=== PATIENT | female | born 1980 | race Caucasian/White ===

== ENCOUNTER 2025-04-28 12:44 | Emergency (ER) | payer OTHER, SELFPAY ==
[2025-04-28 12:46] VITALS: BP 155/96
[2025-04-28 13:06] LABS: Urine Character Clear (Clear)
[2025-04-28 13:32] LABS: Urine Squamous Cell >30 /LPF (Few); Urine Urothelial Cell 0-2 /LPF (FEW)
[2025-04-28 13:33] LABS: Urine Red Blood Cell 0-2 /HPF (0-2)
--- NOTE | 2025-04-28 14:15 | ED.GENMED ---
History of Present Illness
<Bren Castillo MD - Last Filed: 04/28/25 15:22>
General
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
Time Seen by Provider: 04/28/25 14:07
History of Present Illness
History of Present Illness:
Patient is a 45-year-old woman with history of prior ovarian cysts presenting to the emergency department abdominal pain. Patient states that a few weeks ago she developed lower pelvic pain. It is intermittent. Is a cramping sensation. She also
states that she lifted something heavy and felt that she pulled a muscle. No nausea vomiting. No fevers chills. No vaginal discharge. No vaginal bleeding. She is not sexually active. She finished her period yesterday
Phy Exam
<Bren Castillo MD - Last Filed: 04/28/25 15:22>
Physical Exam
Physical Exam:
GENERAL: in no acute distress
HEENT: normocephalic, extraocular movements intact, moist oral mucosa
NECK: normal inspection
RESPIRATORY: no respiratory distress, clear to auscultation bilaterally
CARDIOVASCULAR: regular rate and rhythm
ABDOMEN/: soft, non-distended, tenderness palpation to the lower pelvic area, no rebound or guarding
EXTREMITIES: non-tender, no edema/swelling
NEUROLOGIC: awake and alert, moves all extremities
SKIN: warm
Course
<Bren Castillo MD - Last Filed: 04/28/25 15:22>
Orders/Labs/Results
Orders:
Orders
04/28/25 12:53
HCG, Urine Qualitative Screen Urgent
Date Specimen was Collected: 04/28/25
Time Specimen was Collected: 12:48
Comment: ADD ON
Urinalysis Reflex To Culture Urgent
Date Specimen was Collected: 04/28/25
Time Specimen was Collected: 12:48
Urine Microscopic Reflex Cult Urgent
04/28/25 14:08
US Pelvis W Transvag Combined Urgent
Comment:
Reason For Exam: ab pain
04/28/25 18:19
Add On- LAB Urgent
Tests Added?: urine hcg qual
Abnormal Lab Results
04/28/25
12:53
Ur Occult Blood Reflex 1+ A
(Negative)
Urine Bacteria (Reflex) Few A
(Negative)
Urine Albumin (Reflex) 1+ A
(Neg - Trace)
Vital Signs
Initial and Last Documented VS:
Initial Vital Signs
Temp Pulse Resp BP Pulse Ox
37.1 C 87 16 155/96 98
04/28/25 12:46 04/28/25 12:46 04/28/25 12:46 04/28/25 12:46 04/28/25 12:46
Last Documented Vital Signs
Temp Pulse Resp BP Pulse Ox
37.1 C 80 18 142/70 99
04/28/25 12:46 04/28/25 18:04 04/28/25 18:04 04/28/25 18:04 04/28/25 18:04
<Frank Vines MD - Last Filed: 04/28/25 21:18>
Orders/Labs/Results
Orders:
Orders
04/28/25 12:53
HCG, Urine Qualitative Screen Urgent
Date Specimen was Collected: 04/28/25
Time Specimen was Collected: 12:48
Comment: ADD ON
Urinalysis Reflex To Culture Urgent
Date Specimen was Collected: 04/28/25
Time Specimen was Collected: 12:48
Urine Microscopic Reflex Cult Urgent
04/28/25 14:08
US Pelvis W Transvag Combined Urgent
Comment:
Reason For Exam: ab pain
04/28/25 18:19
Add On- LAB Urgent
Tests Added?: urine hcg qual
Abnormal Lab Results
04/28/25
12:53
Ur Occult Blood Reflex 1+ A
(Negative)
Urine Bacteria (Reflex) Few A
(Negative)
Urine Albumin (Reflex) 1+ A
(Neg - Trace)
Vital Signs
Initial and Last Documented VS:
Initial Vital Signs
Temp Pulse Resp BP Pulse Ox
37.1 C 87 16 155/96 98
04/28/25 12:46 04/28/25 12:46 04/28/25 12:46 04/28/25 12:46 04/28/25 12:46
Last Documented Vital Signs
Temp Pulse Resp BP Pulse Ox
37.1 C 80 18 142/70 99
04/28/25 12:46 04/28/25 18:04 04/28/25 18:04 04/28/25 18:04 04/28/25 18:04
<Bren Castillo MD - Last Filed: 04/28/25 15:22>
MDM/Problems Addressed
Differential Diagnosis Includes:
45-year-old woman with history of ovarian cyst presenting to the emergency department with lower pelvic pain that has been intermittent. On arrival vitals unremarkable and exam does show tenderness with deep palpation. Differential consists of UTI
versus ovarian cyst. History exam not consistent with torsion. Considered sexually-transmitted infection though unlikely given patient's history and exam. Will check urinalysis as well as ultrasound. Did offer pain control the patient declined
<Bren Castillo MD - Last Filed: 04/28/25 15:22>
*Pulse Oximetry
SaO2: 98
Oxygen Mode of Delivery: Room air
<Frank Vines MD - Last Filed: 04/28/25 21:18>
*Pulse Oximetry
Patient hypoxic: no (99%)
*Critical Care Note
Total Time (30-74mins, 75-104mins- exclusive of procedures): Not Applicable
<Bren Castillo MD - Last Filed: 04/28/25 15:22>
Update Note
Update Note:
Patient signed out to oncoming attending pending ultrasound.
<Frank Vines MD - Last Filed: 04/28/25 21:18>
Update Note
Update Note:
Patient signed out to oncoming attending pending ultrasound.
UPDATE (Frank Vines MD)
I have seen and evaluated the patient after signout and reviewed all labs and imaging.
Focused HPI: 45-year-old female with history as noted presents to the ER for evaluation of abdominal pain�she reports that initially she had an episode 2 weeks ago that was rather intense cramping in the lower abdomen has had some intermittent pains
in the lower abdomen since. She does make note that it seemed to be worse when she was bending over to pick things up at work. No vomiting, diarrhea. No vaginal bleeding or urinary symptoms reported. She does have a history ovarian cyst.
Physical exam: Awake and alert not in distress. Vital signs are within acceptable range. Her abdomen is soft and nontender during my assessment.
Medical Decision Makin-year-old female presents for evaluation of abdominal pain/pelvic pain. Urinalysis contaminated but no signs of acute infection. Added urine hCG although she says finished her menstrual period yesterday. Pelvic
ultrasound pending
Pelvic ultrasound shows endometrial polyp and hemorrhagic follicle in the left ovary but no other acute abnormalities. Patient pain-free, stable for discharge can follow-up with BOILER TENDER. Provided a copy of ultrasound report for follow-up. All
questions answered.
ED Attending Note
<Bren Castillo MD - Last Filed: 04/28/25 15:22>
-
Portions of this chart may have been created with voice recognition software.� Occasional wrong word or��sound alike� substitutions may have occurred due to the inherent limitations of voice recognition software.
Discharge Plan
Departure
Patient Disposition: Home (Routine Discharge)
Date of Disposition: 04/28/25
Time of Disposition: 18:32
Patient with high blood pressure during this ER visit?: Yes
Discharge Problem:
Pelvic pain, Ovarian cyst, Endometrial polyp
Instructions: Abdominal Pain
Prescriptions:
No Action
No Current Medications
0
Referrals:
Tanesha Madrigal DO [Family Provider, Family Practice] - Follow up in 1 week
Stand Alone Forms: Return to Work
Activity Restrictions/Additional Instructions:
You should follow-up with your BOILER TENDER as we discussed to have further assessment after your ER visit today and to follow-up on your ultrasound report as we discussed. If your symptoms are worsening or if you develop any new symptoms that are
concerning to you please return to the ER immediately.
Thank you for visiting the Emergency Department at [facility].
1. Please schedule a follow up appointment as directed. Call first thing tomorrow morning to make an appointment.
2. If indicated, please take your medications as instructed and indicated on discharge paperwork.
3. If any of your symptoms do not improve, or persist, or become more severe within 6-12 hours, please return to the emergency department for further care.
4. Please return to the emergency department if you develop a headache, neck pain/stiffness, fever greater than 100.4F, chest pain, shortness of breath, persistent nausea, vomiting, slurred speech, difficulty walking, numbness/tingling, weakness,
signs of infection or any other symptoms that are worrisome to you.
Please call [phone] if you have any questions.
Interventions
Interventions:
*Risk Screen - Suicide Last Done: 04/28/25 12:46
*Neglect/Abuse Screening Last Done: 04/28/25 12:46
*ED- Fall Risk Assessment Last Done: 04/28/25 12:46
*Nursing Disposition Last Done: 04/28/25 18:40
ED-Female Genitourinary Assessment Last Done: 04/28/25 13:58
Discharge Date and Time
Discharge Date/Time: 04/28/25 18:41
Print Language: [id number]
[2025-04-28 18:04] VITALS: BP 142/70
[2025-04-28 18:31] LABS: HCG, Urine Qualitative Screen Negative
== END 2025-04-28 18:41 | disposition home or self-care (01) ==
LOC: EMR 12:44
PROVIDERS: Emergency Medicine; EMERGENCY PHYSICIAN Student in an Organized Health Care Education/Training Program; FAMILY PHYSICIAN Family Medicine
DX: N83.202 Unspecified ovarian cyst, left side (principal); N84.0 Polyp of corpus uteri
CPT/HCPCS: 99284; 76830; 76856; 81003; 81015; 81025